=== PATIENT | male | born 1985 | race Caucasian/White ===

== ENCOUNTER 2018-11-23 11:36 | Emergency (ER) | payer OTHER ==
[2018-11-23 11:46] VITALS: BMI 29.7
[2018-11-23] MEDS ORDERED: TDAP Vaccine 0.5 mL Syr IM ONE (11:59)
[2018-11-23] MEDS ORDERED: Bacitracin 500 Units/gm Oint Foilpak UD TOP ONE (12:05)
--- NOTE | 2018-11-23 12:08 | ED PDOC ---
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 Pt was lifting weights and dropped one on his left hand, causing a 1cm laceration to the volar distal phalanx of 4th digit. Pt is having difficulty fully flexing at the DIP joint. Has not taken any medication for pain. Unknown last tetanus. Denies numbness, weakness, paresthesias, lacerations elsewhere, or any other associated symptoms. Past Medical History - Provider Review Nursing Documentation Reviewed: Yes - Past History Past History: No Previous - Infectious Disease Hx of Infectious Diseases: None - Tetanus Immunization Tetanus Immunization: Up to Date - Past Medical History Past Medical History: No Previous - Psychiatric Hx Psychophysiologic Disorder: No Hx Depression: No Hx Emotional Abuse: No Hx Physical Abuse: No Hx Substance Use: No - Surgical History Other/Comment: Concave chest at - Anesthesia Hx Anesthesia: Yes Hx Anesthesia Reactions: No Hx Malignant Hyperthermia: No - Suicidal Assessment Feels Threatened In Home Enviroment: No Family/Social History - Physician Review Nursing Documentation Reviewed: Yes Family/Social History: No Known Family HX Smoking Status: Current Some Days Smoker Hx Alcohol Use: No Hx Substance Use: No Hx Substance Use Treatment: No Allergies/Home Meds Allergies/Adverse Reactions: Allergies Penicillins Allergy (Verified 08/03/15 18:46) SHORTNESS OF BREATH Review of Systems - Review of Systems Respiratory: Normal. absent: SOB Cardiovascular: Normal. absent: Chest Pain Musculoskeletal: Other (pain and swelling to distal 4th digit left hand). absent: Back Pain, Neck Pain Skin: Laceration (4th digit left hand) Neurological: Normal. absent: Headache, Dizziness, Other (no numbness or paresthesias) Physical Exam Vital Signs Reviewed: Yes Temperature: Afebrile Blood Pressure: Normal Pulse: Regular Respiratory Rate: Normal Appearance: Positive for: Well-Appearing, Non-Toxic, Comfortable Pain Distress: None Mental Status: Positive for: Alert and Oriented X 3 - Systems Exam Head: Present: Atraumatic, Normocephalic Pupils: Present: PERRL Extroacular Muscles: Present: EOMI Conjunctiva: Present: Normal Mouth: Present: Moist Mucous Membranes Neck: Present: Normal Range of Motion Respiratory/Chest: No: Respiratory Distress Upper Extremity: Present: Normal Inspection, NORMAL PULSES, Tenderness (left hand 4th digit DIP joint), Swelling (4th digit left hand distal phalanx), Neurov ascularly Intact, Capillary Refill < 2s, Other (laceration to 4th digit, see skin exam). No: Cyanosis, Edema, Normal ROM (decreased at 4th digit DIP left hand), Temperature Abnormalties Lower Extremity: Present: Normal Inspection, Normal ROM Neurological: Present: GCS=15, CN II-XII Intact, Speech Normal, Motor Func Grossly Intact, Normal Sensory Function, Gait Normal Skin: Present: Warm, Dry, Laceration (1cm laceration to volar 4th digit distal phalanx. No active bleeding. No FB, debris, or tendon laceration on wound e xploration. ) Psychiatric: Present: Alert, Oriented x 3, Normal Insight, Normal Concentration, Normal Affect, Normal Mood Medical Decision Making ED Course and Treatment: 12:12 Initial Plan: * Left Hand Xray * Wound Irrigation * TDaP * Ibuprofen * Wound Repair * Wound Dressing Xray shows comminuted fracture of distal phalanx of Left 4th digit. Wound irrigated thoroughly by radiation technician. Anesthetized using local anesthesia with 1% lidocaine. No FB, debris, or tendon involvement visualized during wound exploration. Pt has full strength in both flexion and extension of digit. Sensation intact. Left 4th digit laceration repaired using 3 5-0 nylon sutures in simple interrupted fashion under sterile technique. Wound edges well approximated, hemostasis achieved. Pt tolerated well. Bacitracin and sterile dressing applied by me. Wound care discussed with patient. Advised return in 7-10 days for suture removal and hand surgeon followup within 2 days. Pt allergic to PCN, will treat with Clindamycin. Advised hand surgeon followup. Educated on importance of prompt followup secondary to open fracture. Pt verbalized understanding. Left 4th digit placed in finger splint by me. Neurovascular exam remains unchanged. Diagnostic testing results and plan of care discussed with patient. Strict instructions given regarding prescription use, importance of followup, and signs/symptoms to return to ER including fever, chills, signs of wound infection, numbness, paresthesias, or any other new/worsening symptoms. Pt v erbalized understanding of discussion. Patient is A&Ox3, ambulating with steady gait, with vital signs stable for discharge. - RAD Interpretation Radiology Orders: 11/23/18 11:59 HAND LEFT 4TH DIGIT (FINGER) [RAD] Stat - Medication Orders Current Medication Orders: Tetanus/Reduced Diphtheria/Acell Pertussis (Boostrix Vaccine Inj) 0.5 ml IM .ONCE ONE Stop: 11/23/18 12:00 Procedure: Wound Repair - Time Out Time Out: Side verified, Site verified, Patient ID confirmed, Sterile procedures obs. - Consent Obtained Consent obtained: Verbal - Performed by Performed by: Mid-level Provider - Indications Indication(s):: Laceration - Location Location:: Left Finger:: Left, Ring Shape:: Linear Dimensions Length cm: 1cm Depth:: Subcutaneous fascia - Anesthetic Technique Anesthetic Technique: Local Local/Regional Anesthetic:: Lidocaine 1% - Debris Debris:: None - Irrigated Irrigated with ml of normal saline: 1000 - Complexity Complexity:: Simple (one layer) - Wound repair method Sutures:: # (3), Size (5-0), Type (nylon), Technique (simple interrupted) - Muscle repiar layer closed with Muscle repair layer closed with:: Wound well approximated, Abx ointment applied, Dressing applied, Tetanus ordered - Complications Complications: None - Patient tolerated procedure Patient Tolerated Procedure:: Well Disposition/Present on Arrival - Present on Arrival Any Indicators Present on Arrival: No History of DVT/PE: No History of Uncontrolled Diabetes: No Urinary Catheter: No History of Decub. Ulcer: No History Surgical Site Infection Following: None - Disposition Have Diagnosis and Disposition been Completed?: Yes Diagnosis: Laceration, Fracture of distal phalanx of finger Disposition: HOME/ ROUTINE Disposition Time: 13:00 Patient Plan: Discharge Condition: GOOD Discharge Instructions (ExitCare): Finger Fracture, Wound Care (DC), Laceration Repair With Stitches (DC) Additional Instructions: RETURN IN 7-10 DAYS FOR SUTURE REMOVAL FOLLOWUP WITH HAND SURGEON WITHIN 2 DAYS CLINDAMYCIN (ANTIBIOTIC), 3 TABLETS EVERY 8 HOURS FOR 7 DAYS Keep wound dry and covered for 48 hours After 48 hours, you may clean the wound daily with soap and water and pat dry After cleaning, apply bacitracin and dressing Keep wound clean, dry, and covered Followup with primary doctor within 2 days Return to ER for any signs of wound infection including redness, tenderness, swelling, drainage, fever or any other new/worsening symptoms Prescriptions: Clindamycin [Cleocin] 450 mg PO Q8 #63 cap Ibuprofen [Motrin Tab] 600 mg PO Q8 PRN #30 tab PRN Reason: Pain, Moderate (4-7) Referrals: [facility] [place] [Outside] - Follow up with primary Joseph Angulo MD [Staff Provider] - Follow up with primary Yolie Mckeon MD [Medical Doctor] - Follow up with primary Forms: [facility] (Spanish), WORK NOTE
--- NOTE | 2018-11-23 12:34 | RAD ---
PROCEDURE: Left Hand Radiographs. HISTORY: crush injury and laceration 4th digit COMPARISON: None. TECHNIQUE: 3 views obtained. FINDINGS: BONES: There is a crush type fracture of the distal tuft of the 4th digit JOINTS: Normal. No osteoarthritic changes. SOFT TISSUES: Normal. OTHER FINDINGS: None. IMPRESSION: There is a crush type fracture of the distal tuft of the 4th digit
[2018-11-23 13:40] VITALS: RESP 18; TEMP 98.2; O2SAT 100
[2018-11-23 14:04] VITALS: BP 136/81; PULSE 88
== END 2018-11-23 14:00 | disposition home or self-care (01) ==
LOC: ED 11:36
DX: S62.635A Displaced fracture of distal phalanx of left ring finger, initial encounter for closed fracture (principal); W23.0XXA Caught, crushed, jammed, or pinched between moving objects, initial encounter; Z23 Encounter for immunization